=== PATIENT | male | born 1960 | race Asian ===

== ENCOUNTER 2017-01-23 12:12 | Emergency (ER) | payer OTHER ==
[2017-01-23 12:25] VITALS: BP 123/73; PULSE 60; TEMP 97.6; BMI 24.3
[2017-01-23] MEDS ORDERED: diazePAM 5 MG TABLET PO ONE (13:52)
[2017-01-23] MEDS ORDERED: KETOROLAC TROMETHAMINE 60 MG/2 ML VIAL IM ONE (13:52)
[2017-01-23] MEDS ORDERED: diazePAM 5 MG TABLET ONE (13:55)
[2017-01-23] MEDS ORDERED: KETOROLAC TROMETHAMINE 60 MG/2 ML VIAL ONE (13:55)
--- NOTE | 2017-01-23 14:37 | PDOC ---
History of Present Illness - General Chief Complaint: Back Pain Stated Complaint: BACK PAIN Time Seen by Provider: 01/23/17 13:06 History Source: Patient Exam Limitations: No Limitations - History of Present Illness Initial Comments: 01/23/17 14:34 My chief complaint left lower back pain radiating down left leg since yesterday History of present illness: Patient is a 56-year-old male with a history of hyperlipidemia here today due to left-sided lower back pain that radiates down his left leg to his knee area since yesterday. Patient reports that pain is worse with sitting or trying to get up from a seated position. Patient denies any numbness of his legs or any saddle anesthesia or any incontinency. Patient denies also any weakness of his left leg. Patient denies doing any heavy lifting or exercise. Patient denies any previous back problems in the past. Occurred: reports: yesterday Severity: reports: moderate Pain Location: reports: back (left back pain with radiation down left leg to knee ), lower extremity (left leg ) Method of Injury: Yes: unknown Modifying Factors: improves with: None Loss of Consciousness: no loss of consciousness Associated Symptoms (Fall): denies symptoms Past History - Past Medical History Allergies/Adverse Reactions: Allergies Allergy/AdvReac Type Severity Reaction Status Date / Time No Known Allergies Allergy Verified 01/23/17 12:20 Home Medications: Ambulatory Orders Cyclobenzaprine HCl [Flexeril -] 10 mg PO Q8H PRN #21 tablet 01/23/17 Naproxen [Naprosyn -] 500 mg PO BID PRN #14 tablet 01/23/17 COPD: No Hypercholesterolemia: Yes Other medical history: varicose veins - Suicide/Smoking/Psychosocial Hx Smoking History: Never smoked Have you smoked in the past 12 months: No Information on smoking cessation initiated: No Hx Alcohol Use: No Drug/Substance Use Hx: No Review of Systems - Review of Systems Able to Perform ROS?: Yes Constitutional: No: Symptoms Reported HEENTM: No: Symptoms Reported Respiratory: No: Symptoms reported Cardiac (ROS): No: Symptoms Reported ABD/GI: No: Symptoms Reported : No: Symptoms Reported Musculoskeletal: Yes: Back Pain (left lower back radiates down left leg to knee ) Integumentary: No: Symptoms Reported Neurological: No: Symptoms reported *Physical Exam - Vital Signs Last Vital Signs Temp Pulse Resp BP Pulse Ox 97.6 F 60 18 123/73 100 01/23/17 12:22 01/23/17 12:22 01/23/17 12:22 01/23/17 12:22 01/23/17 12:22 - Physical Exam General Appearance: Yes: Appropriately Dressed Respiratory/Chest: positive: Lungs Clear, Normal Breath Sounds. negative: Chest Tender, Respiratory Distress Cardiovascular: positive: Regular Rhythm, Regular Rate, S1, S2 Vascular Pulses: Doralis-Pedis (L): 4+ Musculoskeletal: positive: Normal Inspection, Decreased Range of Motion (at waist with flexion ), Muscle Spasm (left lumbar paraspinal muscle ). negative: CVA Tenderness, CVA Tenderness (R), CVA Tenderness (L), Vertebral Tenderness Extremity: positive: Normal Capillary Refill, Normal Inspection, Normal Range of Motion Integumentary: positive: Normal Color Neurologic: positive: Normal Response, Motor Strength 5/5 (b/l legs ), Respond to painful stimul (b/l legs ), Responsive, Other (SLR b/l negative ). negative : Numbness, Sensory Deficit Deep Tendon Reflexes: Knee (L): 4+, Knee (R): 4+ ED Treatment Course - RADIOLOGY Radiology Studies Ordered: Category Date Time Status SPINE-LUMBAR SACRAL [RAD] Stat Radiology 01/23/17 14:10 Ordered - Medications Given in the ED: ED Medications Discontinued Medications Generic Name Dose Route Start Last Admin Trade Name Freq PRN Reason Stop Dose Admin Diazepam 5 mg 01/23/17 13:52 01/23/17 13:59 Valium - PO 01/23/17 13:53 5 mg ONCE ONE Administration Ketorolac Tromethamine 60 mg 01/23/17 13:52 01/23/17 13:59 Toradol Injection - IM 01/23/17 13:53 60 mg ONCE ONE Administration Medical Decision Making - Medical Decision Making 01/23/17 14:36 Patient is a 56-year-old male with a history of hyperlipidemia here today due to left-sided lower back pain that radiates down his left leg to his knee area since yesterday. Patient reports that pain is worse with sitting or trying to get up from a seated position. Patient denies any numbness of his legs or any saddle anesthesia or any incontinency. Patient denies also any weakness of his left leg. Patient denies doing any heavy lifting or exercise. Patient denies any previous back problems in the past. Left lower back pain with radiculopathy to left leg Plan: Toradol 60 mg IM now Valium 5 mg by mouth now Naprosyn 500 mg twice a day when necessary pain Flexeril 10 mg every 8 hours as needed for muscle spasming 21 tabs XRAY LUMBAR SACRAL SPINE straightening of normal lordotic curve Follow-up with orthopedist as soon as possible 01/23/17 15:25 *DC/Admit/Observation/Transfer Diagnosis at time of Disposition: Lumbar pain with radiation down left leg - Discharge Dispostion Disposition: HOME Condition at time of disposition: Stable - Referrals Referrals: Zuleika Mendez MD [Primary Care Provider] - Clark Franklin MD [Staff Physician] - - Patient Instructions Additional Instructions: AVOID ANY STRENOUS ACTIVITIES, LIFTING OR EXERCISE RETURN TO EMERGENCY ROOM FOR WORSENING PAIN, WEAKNESS OF LEGS, LOSS OF CONTROL OF BLADDER OR BOWEL MOVEMENT OR NUMBNESS OF LEGS OR PRIVATE AREA FOLLOW UP WITH ORTHOPEDIST SOON POSSIBLE PATIENT VOICED UNDERSTANDING OF DISCHARGE INSTRUCTIONS AND ALL QUESTIONS WERE ANSWERED - Post Discharge Activity
== END 2017-01-23 15:44 | disposition home or self-care (01) ==
LOC: JERFT 12:12
PROC: 3E0233Z Introduction of Anti-inflammatory into Muscle, Percutaneous Approach (ICD-10-PCS; principal; 2017-01-23)
DX: M54.16 Radiculopathy, lumbar region (principal)
CPT/HCPCS: 72100-TC; 99281-25

== ENCOUNTER 2017-12-13 08:39 | Day surgery (SDC) | payer OTHER ==
[2017-12-13 09:11] VITALS: BMI 25.0
[2017-12-13] MEDS ORDERED: TETRACAINE/BENZOCAINE/BUTAMBEN 20 GM SPR TP ONE (09:41)
[2017-12-13 10:47] VITALS: TEMP 97.5
[2017-12-13 11:36] VITALS: BP 108/66; PULSE 62
--- NOTE | 2017-12-15 14:26 | PATH ---
Surgical Pathology Report Patient Name: ALEJA OCAMPO [facility]. Rec. #: [id number] /Age/Gender: 1960 (Age: 57) / M Account: [id number] Location: U-ENDOSCOPY Taken: 12/13/2017 Received: 12/13/2017 Reported: 12/14/2017 Physicians: Mark Alba M.D. Specimen(s) Received A: BX 2ND PORTION DUODENUM AND DUODENAL BULB B: BX ANTRUM AND BODY C: POLYP SIGMOID D: BX TRANSVERSE COLON POLYP Clinical History Family history of GI and colon cancer Postoperative diagnosis: Atrophic gastritis, colon polyps, hemorrhoids Final Diagnosis A. DUODENUM AND DUODENAL BULB, SECOND PORTION, BIOPSY: DUODENAL MUCOSA WITHOUT SIGNIFICANT PATHOLOGIC FINDINGS. B. STOMACH, ANTRUM AND BODY, BIOPSY: GASTRIC ANTRAL AND BODY MUCOSA WITH MODERATE TO SEVERE CHRONIC ACTIVE GASTRITIS AND INTESTINAL METAPLASIA. NO DYSPLASIA IDENTIFIED. IMMUNOHISTOCHEMICAL STAIN FOR H. PYLORI IS POSITIVE (MANY). C. SIGMOID COLON, POLYP, POLYPECTOMY: HYPERPLASTIC POLYP. D. TRANSVERSE COLON, POLYP, POLYPECTOMY: HYPERPLASTIC POLYP. Electronically Signed Corine Cleveland M.D. Gross Description A. Received in formalin, labeled "biopsy second portion of duodenum and duodenal bulb" are 3 thao, irregular portions of soft tissue ranging from 0.3-0.5 cm. in greatest dimension. The specimens are submitted in toto in one cassette. B. Received in formalin, labeled "biopsy antrum and body" are 7 thao, irregular portions of soft tissue ranging from 0.3-0.6 cm. in greatest dimension. The specimens are submitted in toto in one cassette. C. Received in formalin, labeled "biopsy sigmoid polyp" are 2 thao, irregular portions of soft tissue averaging 0.3 cm. in greatest dimension. The specimens are submitted in toto in one cassette. D. Received in formalin, labeled "transverse colon polyp" is a thao, irregular portion of soft tissue measuring 0.4 cm. in greatest dimension. The specimen is submitted in toto in one cassette. 12/13/2017 saudi12/13/2017
== END 2017-12-13 11:36 | disposition home or self-care (01) ==
LOC: JASU-ENDO 08:39
PROVIDERS: ATTEND Internal Medicine Gastroenterology
PROC: 0DBN8ZX Excision of Sigmoid Colon, Via Natural or Artificial Opening Endoscopic, Diagnostic (ICD-10-PCS; 2017-12-13)
PROC: 0DB98ZX Excision of Duodenum, Via Natural or Artificial Opening Endoscopic, Diagnostic (ICD-10-PCS; 2017-12-13)
PROC: 0DB68ZX Excision of Stomach, Via Natural or Artificial Opening Endoscopic, Diagnostic (ICD-10-PCS; 2017-12-13)
PROC: 0DBL8ZX Excision of Transverse Colon, Via Natural or Artificial Opening Endoscopic, Diagnostic (ICD-10-PCS; principal; 2017-12-13 09:30)
DX: Z12.11 Encounter for screening for malignant neoplasm of colon (principal); K63.5 Polyp of colon; K64.8 Other hemorrhoids; Z80.0 Family history of malignant neoplasm of digestive organs
CPT/HCPCS: 88305-TC; 88342-TC

== ENCOUNTER 2023-12-25 03:51 | Day surgery (SDC) | payer BC ==
[2023-12-20 12:49] VITALS: BMI 25.3
[2023-12-25 11:12] VITALS: TEMP 97.8
[2023-12-25 11:44] VITALS: BP 121/69; PULSE 63; RESP 16
== END 2023-12-25 11:45 | disposition home or self-care (01) ==
LOC: JASU-ENDO 03:51
PROVIDERS: ATTEND Internal Medicine Gastroenterology
PROC: 0DB98ZX Excision of Duodenum, Via Natural or Artificial Opening Endoscopic, Diagnostic (ICD-10-PCS; 2023-12-25)
PROC: 0DB78ZX Excision of Stomach, Pylorus, Via Natural or Artificial Opening Endoscopic, Diagnostic (ICD-10-PCS; 2023-12-25)
PROC: 0DB68ZX Excision of Stomach, Via Natural or Artificial Opening Endoscopic, Diagnostic (ICD-10-PCS; 2023-12-25)
PROC: 0DJD8ZZ Inspection of Lower Intestinal Tract, Via Natural or Artificial Opening Endoscopic (ICD-10-PCS; principal; 2023-12-25 11:00)
DX: Z12.11 Encounter for screening for malignant neoplasm of colon (principal); K64.8 Other hemorrhoids; K31.A15 Gastric intestinal metaplasia without dysplasia, involving multiple sites; Z86.0100 Personal history of colon polyps, unspecified
CPT/HCPCS: 88305-TC; 88342-TC